=== PATIENT | male | born 1995 | race Caucasian/White ===

== ENCOUNTER 2021-02-17 19:35 | Emergency (ER) | payer OTHER ==
[2021-02-17 19:54] VITALS: BP 120/58; PULSE 76; TEMP 99.3; BMI 30.5
[2021-02-17] MEDS ORDERED: ACETAMINOPHEN 325 MG TABLET (FP) PO ONE (22:33)
[2021-02-17] MEDS ORDERED: ACETAMINOPHEN 325 MG TABLET (FP) ONE (22:34)
== END 2021-02-17 22:57 ==
LOC: JER 19:35
DX: R51.9 Headache, unspecified (principal); J06.9 Acute upper respiratory infection, unspecified; H92.02 Otalgia, left ear
CPT/HCPCS: 99283-25; C9803; U0003; U0005